=== PATIENT | female | born 1965 | race Caucasian/White ===

== ENCOUNTER 2023-05-13 10:57 | Emergency (ER) | payer OTHER, SELFPAY ==
[2023-05-13 11:19] VITALS: BP 148/93; PULSE 92; RESP 18; TEMP 36.8; O2SAT 100
--- NOTE | 2023-05-13 11:50 | ED.GENADULT ---
HPI - General Adult General Chief complaint: Skin/Abscess/Foreign Body Stated complaint: rash,facial swelling Time Seen by Provider: 05/13/23 11:50 Source: patient Mode of arrival: ambulatory Limitations: no limitations History of Present Illness HPI narrative: 57-year-old female patient presents to the [facility] with complaints of facial swelling and itching. Patient states she had something similar to this that happened to her a couple of months ago and she received oral steroids as well as a shot. Patient states it did go away. Patient denies any new detergents, lotions or soaps. Patient states she thinks she might be allergic to some of her blair because she was tending to her blair on Sunday evening and the rash started yesterday morning when she woke up. Denies any shortness of breath, chest pain or trouble swallowing. Related Data Home Medications Medication Instructions Recorded Confirmed losartan 25 mg tablet 25 mg PO DAILY 05/13/23 05/13/23 Allergies Allergy/AdvReac Type Severity Reaction Status Date / Time No Known Allergies Allergy Verified 05/13/23 11:23 Review of Systems Review of Systems: CONSTITUTIONAL: Denies fever, chills, or sweats. EYES: Denies visual changes, redness, or discharge. ENT: Denies rhinorrhea, congestion, sore throat, or otalgia. CARDIOVASCULAR: Denies chest pain, palpitations, or edema. RESPIRATORY: Denies cough or dyspnea. GASTROINTESTINAL: Denies abdominal pain, nausea, vomiting, or diarrhea. GENITOURINARY: Denies dysuria or hematuria. SKIN: Positive facial rash or itching. MUSCULOSKELETAL: Denies back pain, joint pain, or myalgia. NEUROLOGIC: Denies headache, numbness, or weakness. PSYCHIATRIC: Denies anxiety or depression. PMFSH Comments At the time of my signature I agree with nursing past medical history, surgical, social, and family history. There is no relevant family history pertinent to the presenting complaint. Exam Narrative: GENERAL: Well-appearing, well-nourished, and in no acute distress. HEAD: Normocephalic, atraumatic. EYES: PERRLA and EOMI. ENT: Nares clear, no rhinorrhea or epistaxis. Mucous membranes moist. Posterior pharynx with no erythema, tonsillar enlargement, exudates or lesions present. NECK: Supple. No lymphadenopathy . No stridor noted on auscultation CHEST: Clear to auscultation. No respiratory distress. patient able talk clear complete sentences. HEART: Regular rate and rhythm. No murmur heard. Normal peripheral pulses. ABDOMEN: Soft, nontender, nondistended, normal active bowel sounds. EXTREMITIES: Normal range of motion. No edema. SKIN: Warm, dry, patient has a rash noted to the face area as well as swelling noted to the bilateral upper lids. There is some swelling noted to the left Farias. NEURO: No focal deficits. Alert and oriented x3. Course Course Level of Care: Express Care Visit Vital Signs Vital signs: Vital Signs Temperature 36.8 C 05/13/23 11:19 Pulse Rate 92 05/13/23 11:19 Respiratory Rate 18 05/13/23 11:19 Blood Pressure 148/93 H 05/13/23 11:19 Pulse Oximetry 100 05/13/23 11:19 Oxygen Delivery Room Air 05/13/23 11:19 Temperature 36.8 C 05/13/23 11:19 Pulse Rate 92 05/13/23 11:19 Respiratory Rate 18 05/13/23 11:19 Blood Pressure 148/93 H 05/13/23 11:19 Pulse Oximetry 100 05/13/23 11:19 Oxygen Delivery Room Air 05/13/23 11:19 Vital signs reviewed. The patient has been informed that they may have pre-hypertension or Hypertension based on a BP reading in the department. I recommend that the patient call the primary care provider listed on their discharge instructions or a physician of their choice this week to arrange follow up for further evaluation of possible pre-hypertension or Hypertension Medical Decision Making MDM Narrative Medical decision making narrative: Plan care patient is discharged home with oral steroids for the allergic reaction also recom
== END 2023-05-13 12:12 | disposition home or self-care (01) ==
PROVIDERS: Emergency Provider Nurse Practitioner Family; PCP Pediatrics
DX: R21 Rash and other nonspecific skin eruption (principal); T78.40XA Allergy, unspecified, initial encounter; I10 Essential (primary) hypertension
CPT/HCPCS: 99203; G0463